=== PATIENT | female | born 1965 | race Caucasian/White ===

== ENCOUNTER 2016-07-07 10:15 | Day surgery (SDC) | payer OTHER ==
[2016-07-07] VITALS (7 sets, daily range): BP systolic 142–152; BP diastolic 78–86; PULSE 68–85; RESP 12–18; O2SAT 96–99
[~2016-07-07] VITALS: Ht 157.5 cm; Wt 70.0 kg
[~2016-07-07 10:15] MED LIST: METF500T4 PO; POLY17PO6 PO; Sodium Chloride LOK Flush 10 mL Syringe IV PRN; fentaNYL-PF 50 mCg/mL 2 mL Inj IVPUSH PRN
[2016-07-07] MEDS ORDERED: FERR159T2 PO (10:42)
[2016-07-07] MEDS ORDERED: THYR60TA2 PO (10:42)
[2016-07-07] MEDS: 0.9% Sodium Chloride 1,000 ML IV PRN ×2 (11:42→12:20)
--- NOTE | 2016-07-07 21:13 | ENDO ---
[address] [address] ENDOSCOPY PROCEDURE PATIENT: JESI SALES : 1965 MR#: [id number] ADMIT: 07/07/2016 JOB ID: [id number] DATE: 07/07/2016 PROCEDURE: 1. Colonoscopy. 2. Hot snare polypectomy. 3. Cold snare polypectomy. 4. Sabine ink tattoo injection. 5. Argon plasma coagulation (APC) ablation. INDICATIONS: A 50-year-old female who reports for colon cancer screening. EQUIPMENT: [employer] H 180 AL. SEDATION: 1. 7 mg Versed. 2. 125 mcg fentanyl. COMPLICATIONS: None identified. BOWEL PREPARATION: Fair, adequate exam. PROCEDURE INFORMATION: After the risks and benefits were explained, written and verbal informed consent was obtained. The patient was brought into the endoscopy suite and placed into the left lateral decubitus position. Sedation was achieved as above. A digital rectal examination was accomplished. No significant pathology apart from some mild internal hemorrhoids noted. The scope was introduced into the rectum and advanced under direct visualization to the level of the cecum, as identified by the appendiceal orifice and ileocecal valve. The scope was slowly withdrawn to carefully examine the mucosa for any defects or lesions. Multiple direct views were made through the dentate line for exclusion of pathology. The colon was decompressed, the scope removed from the patient who tolerated the procedure well. FINDINGS: In the transverse colon near the hepatic flexure, there was a large approximately 2 cm sessile polyp spread out along a fold and around the backside of said fold. This was removed by way of piecemeal hot snare polypectomy using the Jumbo snare. We then APC'd the edges of the polyp and placed a small Sabine ink tattoo adjacent to the polypectomy site. Photographs were taken. This polyp was submitted all on its own. There were then four other small polyps removed by way of a combination of either hot snare or cold snare all throughout the colon from ascending to rectosigmoid region. No other significant pathology was appreciated apart from a small AVM near the right colon, nonbleeding. ENDOSCOPIC DIAGNOSES: 1. Large colon polyp. 2. Colon polyps. 3. Hemorrhoids. 4. Nonbleeding arteriovenous malformation. RECOMMENDATIONS: 1. Await histopathology. 2. Avoid aspirin or NSAIDs for at least one full week. 3. Because this polyp came by way of piecemeal polypectomy, I think a repeat colonoscopy in about six months would be appropriate to ensure all of it has indeed been removed.
--- NOTE | 2016-07-08 11:30 | PATH ---
SURGICAL PATHOLOGY Attending Physician:Ranjan Zurita CASE STATUS: Signed Out PATIENT NAME: JESI SALES PID: [id number] : 1965 DATE COLLECTED:07/07/2016 20:06 SPECIMEN: 1: Colon, Biopsy 2: Colon, Biopsy CLINICAL HISTORY: 1). TRANSVERSE COLON POLYPS 2). COLON POLYPS FINAL DIAGNOSIS: 1. Transverse Colon Polyps: Tubular adenomas, multiple fragments. 2. Colon Polyps: Tubular adenomas, three fragments. Hyperplastic polyp, one fragment. ICD10 D12.3; D12.6; K63.5 GROSS DESCRIPTION: The specimen is received in two formalin filled containers labeled with the patient's name. 1). The specimen is sublabeled "transverse colon polyps" and consists of multiple portions of tissue which aggregate to 0.7 x 0.7 x 0.5 CM. The smallest pieces are entirely submitted. The largest piece is trisected and totally submitted in the same cassette. 2). The specimen is sublabeled "colon polyps" and consists of multiple portions of tissue which aggregate to 0.6 x 0.3 x 0.2 CM. The specimen is filtered entirely submitted in cassette 2A. 07/07/2016 [facility] MICRO DESCRIPTION: Please see diagnosis. ICD-9 CODES: CPT CODES: 1: 26449 2: 91382 Electronically Signed Out Ella Guerrero MD [facility] [address], [place] [address] Technical component performed at [facility], [facility] [address], [place], [address]
== END 2016-07-07 23:59 | disposition home or self-care (01) ==
LOC: END 10:15
PROVIDERS: ATTEND Internal Medicine Gastroenterology
DX: Z12.11 Encounter for screening for malignant neoplasm of colon (principal); Q27.39 Arteriovenous malformation, other site; K64.8 Other hemorrhoids; D12.3 Benign neoplasm of transverse colon; K63.5 Polyp of colon
CPT/HCPCS: 45381; 45385; 99153; G0500; J7030

== ENCOUNTER → 2016-12-07 | Day surgery (SDC) | payer OTHER ==
[~2016-12-07] VITALS: Ht 157.5 cm; Wt 66.7 kg
[~2016-12-07] MED LIST changes: +0.9% Sodium Chloride 1,000 ML IV PRN; +THYR60TA2 PO
[2016-12-07 09:18] VITALS: BP 132/79; PULSE 65; RESP 14; O2SAT 98
[2016-12-07 10:12] VITALS: BP 131/74; PULSE 73; RESP 14; O2SAT 97
[2016-12-07 10:20] VITALS: BP 107/79; PULSE 75; RESP 14; O2SAT 97
--- NOTE | 2016-12-07 10:30 | ENDO ---
[address] [address] ENDOSCOPY PROCEDURE PATIENT: JESI SALES : 1965 MR#: [id number] ADMIT: 12/07/2016 JOB ID: [id number] DATE: 12/07/2016 PRIMARY PROVIDER: PATRICIA Ramírez PROCEDURE: Colonoscopy with cold forceps polypectomy. INDICATIONS: A 51-year-old female with a large polyp removed in the spring, adenomatous. She returns today to ensure complete excision has been accomplished. EQUIPMENT: PCF-H180-AL. SEDATION: 5 mg Versed and 100 mcg fentanyl. COMPLICATIONS: None identified. BOWEL PREPARATION: Very adequate. PROCEDURE INFORMATION: After the risks and benefits were explained, written and verbal informed consent was obtained. The patient was brought into the endoscopy suite and placed into the left lateral decubitus position. Sedation was achieved as above. A digital rectal examination accomplished. No significant pathology appreciated. The scope was introduced into the rectum and advanced to the cecum as identified by the appendiceal orifice and ileocecal valve. The scope was slowly withdrawn to carefully examine the mucosa for any defects or lesions. Multiple direct views were made through the dentate line for exclusion of pathology. The colon was decompressed, the scope removed from the patient who tolerated the procedure well. FINDINGS: Tattoo was identified in the transverse. I did not see any significant residual polypoid-appearing mucosa. In the transverse, there were two diminutive polyps removed with cold forceps and submitted for histopathology. No other significant pathology was appreciated throughout. ENDOSCOPIC DIAGNOSES: 1. Diminutive colon polyps. 2. Mild internal hemorrhoids. RECOMMENDATIONS: 1. Await histopathology. 2. Repeat colonoscopy three years considering the large size of the polyp removed earlier this spring.
--- NOTE | 2016-12-09 16:31 | PATH ---
SURGICAL PATHOLOGY Attending Physician:Ranjan Zurita CASE STATUS: Signed Out PATIENT NAME: JESI SALES PID: [id number] : 1965 DATE COLLECTED:12/07/2016 22:05 SPECIMEN: Colon, Polyp CLINICAL HISTORY: PERSONAL HISTORY OF POLYPS 1). TRANSVERSE COLON POLYPS X 2 FINAL DIAGNOSIS: Transverse Colon Polyps x2, Biopsies: Tubular adenoma x2. ICD10: D12.3 GROSS DESCRIPTION: The specimen is received in one formalin filled container labeled with the patient's name, sublabeled "transverse colon polyps" and consists of 2 portions of tissue which aggregate to 0.2 x 0.2 x 0.2 CM. The specimen is entirely submitted in one cassette. 12/07/2016DC ICD-9 CODES: CPT CODES: 1: 26968 Electronically Signed Out Sachin Farris MD, Ph.D. [facility] [address], [place] [address] Technical component performed at [facility], [facility] [address], [place], [address]
== END | disposition home or self-care (01) ==
LOC: END 00:14
PROVIDERS: ATTEND Internal Medicine Gastroenterology
DX: D12.3 Benign neoplasm of transverse colon (principal); Z80.0 Family history of malignant neoplasm of digestive organs; K64.8 Other hemorrhoids
CPT/HCPCS: 45380; 99153; G0500; J2250; J3010; J7030